=== PATIENT | female | born 1985 | race Caucasian/White ===

== ENCOUNTER 2016-10-23 02:59 | Emergency (ER) | payer BC ==
[~2016-10-23] VITALS: Ht 154.9 cm; Wt 77.1 kg
[2016-10-23 03:30] VITALS: BP 143/81
[2016-10-23] MEDS ORDERED: MORPHINE 4 MG/ML 1ML SYRINGE IV ONE ×2 (03:30→04:30)
[2016-10-23] MEDS ORDERED: NS 1,000 ML IV ONE (03:30)
[2016-10-23 03:41] LABS: BASO % 0.3 % (0.0-1.0); EOS # 0.4 K/mm3 (0.0-0.50); EOS % 3.7 % (0.0-3.0); LARGE UNSTAINED CELL # 0.1 K/mm3 (0.0-0.4); LARGE UNSTAINED CELL % 0.8 % (0.0-4.0); LYMPH # 3.3 K/mm3 (1.5-4.5); LYMPH % 29.8 % (24.0-44.0); MEAN CORPUSCULAR HEMOGLOBIN 30.9 pg (27.0-33.0); MEAN CORPUSCULAR VOLUME 93.6 fl (80.0-96.0); MONO # 0.5 K/mm3 (0.0-0.8); MONO % 4.2 % (0.0-5.0); NEUTROPHILS # 6.7 K/mm3 (1.8-7.7); NEUTROPHILS % 61.1 % (36.0-66.0); PLATELET COUNT, AUTOMATED 336 k/mm3 (150-450); RED CELL DISTRIBUTION WIDTH 12.1 % (11.5-14.5)
[2016-10-23 03:59] LABS: ALBUMIN 3.3 GM/DL (3.2-5.2); ALBUMIN/GLOBULIN RATIO 0.97 (1.00-1.93); ALKALINE PHOSPHATASE 133 U/L (45-117); ALT/SGPT 21 U/L (12-78); AMYLASE 59 U/L (25-115); ANION GAP 7 MEQ/L (8-16); AST/SGOT 8 U/L (15-37); BILIRUBIN,DIRECT < 0.1 MG/DL (0.0-0.2); BILIRUBIN,TOTAL 0.2 MG/DL (0.2-1.0); BLOOD UREA NITROGEN 13 MG/DL (7-18); CALCIUM LEVEL 8.9 MG/DL (8.5-10.1); CARBON DIOXIDE LEVEL 27 MEQ/L (21-32); CHLORIDE LEVEL 106 MEQ/L (98-107); CREATININE FOR GFR 0.68 MG/DL (0.55-1.02); GLOMERULAR FILTRATION RATE > 60.0 (>60); GLUCOSE, FASTING 100 MG/DL (70-105); POTASSIUM SERUM 3.7 MEQ/L (3.5-5.1); SODIUM LEVEL 140 MEQ/L (136-145); TOTAL PROTEIN 6.7 GM/DL (6.4-8.2)
[2016-10-23] MEDS ORDERED: ISOVUE-370 76% 100ML VIAL (Q9967) As Ordered ONE (04:10)
[2016-10-23 04:22] LABS: CONTROL LINE HCG INT CTR LINE PRESENT
--- NOTE | 2016-10-23 04:50 | REPUSA ---
CLINICAL HISTORY: Abdominal pain. TECHNIQUE: Multiple axial, sagittal and coronal CT images were obtained through the abdomen and pelvi s after administration of intravenous contrast material. COMMENTS: The liver is mildly enlarged with decreased attenuation without mass or defect. There is no intra or extrahepatic biliary ductal dilatation. The spleen is normal. The gallbladder is within normal limits . The pancreas is of normal contour and attenuation characteristics. There is no evidence of adrenal mass. Both kidneys demonstrate prompt and equal nephrograms. The kidneys are normal in size, shape and conf iguration. There is no evidence of renal or ureteral mass. No renal or ureteral calculi are identifie d. There is no hydroureter or hydronephrosis. No evidence for appendicitis. There is no bowel wall thickening. No evidence for small or large cherrie l obstruction. There is no evidence of abdominal ascites or lymphadenopathy. Moderate large bowel fecal stasis. Gastric sleeve surgery. There is no evidence of intrinsic or extrinsic bladder mass. There is no pelvic ascites or lymphadeno yue. Thickened bladder. 2.9 cm right ovarian cyst. Images of the lung bases show no evidence of pleural or parenchymal mass. There are no pleural effusi ons. The bony structures are free of lytic or blastic lesions. Multilevel degenerative changes are seen in volving the thoracolumbar spine. Scattered calcifications are seen involving the aorta and major bran ches compatible with atherosclerosis. IMPRESSION: Constipation. Gastric sleeve surgery. Mildly thickened bladder, nondistention versus mild cystitis. 2.9 cm right ovarian cyst. Thank you for your kind referral of this patient.
[2016-10-23] MEDS ORDERED: TRAM50TA2 PO (04:58)
== END 2016-10-23 06:13 | disposition home or self-care (01) ==
LOC: M ED 04:06
DX: N83.201 Unspecified ovarian cyst, right side (principal)
CPT/HCPCS: 36415; 74177; 80048; 80076; 81001; 82150; 83690; 84703; 85025; 87086; 96374; 96376; 99283; Q9967

== ENCOUNTER → 2019-08-08 20:24 | Emergency (ER) | payer OTHER, SELFPAY ==
[~2019-08-08] VITALS: Ht 154.9 cm; Wt 73.9 kg
[~2019-08-08 20:24] MED LIST: TRAM50TA2 PO; TRI-TAB16 PO
[2019-08-08 20:25] VITALS: BP 149/85
== END | disposition left against medical advice (07) ==
LOC: M ED 20:24
DX: Z53.29 Procedure and treatment not carried out because of patient's decision for other reasons (principal)

== ENCOUNTER 2019-12-02 17:13 | Emergency (ER) | payer SELFPAY ==
[~2019-12-02] VITALS: Ht 154.9 cm; Wt 79.4 kg
[2019-12-02] MEDS ORDERED: GI COCKTAIL 50ML BTL(HYOSCYAMINE/MAALOX/LIDOCAINE VISCOUS)(1:3:1) PO ONE (17:45)
[2019-12-02] MEDS ORDERED: KETOROLAC 30 MG/ML 1ML VIAL IV ONE (17:45)
[2019-12-02] MEDS ORDERED: NS 1,000 ML IV ONE (17:45)
[2019-12-02 18:05] LABS: BASO % 0.2 % (0.0-1.0); EOS # 0.3 10^3/uL (0.0-0.5); EOS % 3.4 % (0.0-3.0); HEMATOCRIT 40.8 % (36.0-47.0); HEMOGLOBIN 13.5 g/dl (12.0-15.5); LYMPH # 2.6 10^3/uL (1.5-5.0); LYMPH % 29.7 % (24.0-44.0); MEAN CORPUSCULAR HEMOGLOBIN 31.8 pg (27.0-33.0); MEAN CORPUSCULAR HGB CONC 33.1 g/dl (32.0-36.5); MONO # 0.6 10^3/uL (0.0-0.8); MONO % 6.6 % (0.0-5.0); NEUTROPHILS # 5.2 10^3/uL (1.5-8.5); NEUTROPHILS % 59.9 % (36.0-66.0); PLATELET COUNT, AUTOMATED 313 10^3/uL (150-450); RED BLOOD COUNT 4.25 10^6/uL (4.00-5.40); WHITE BLOOD COUNT 8.6 10^3/uL (4.0-10.0)
[2019-12-02 18:19] LABS: INR 0.94; PARTIAL THROMBOPLASTIN TIME 24.4 SECONDS (25.0-38.4); PROTHROMBIN TIME 12.3 SECONDS (11.8-14.0)
[2019-12-02 18:21] LABS: ALBUMIN 3.5 GM/DL (3.2-5.2); ALT/SGPT 24 U/L (12-78); BILIRUBIN,DIRECT < 0.1 MG/DL (0.0-0.2); BILIRUBIN,TOTAL 0.2 MG/DL (0.2-1.0); LIPASE 65 U/L (73-393)
--- NOTE | 2019-12-02 19:49 | REPVR ---
PROCEDURE INFORMATION: Exam: US Abdomen Limited, Right Upper Quadrant Exam date and time: 12/02/2019 7:34 PM Age: 34 years old Clinical indication: Abdominal pain; Acute; Additional info: Ruq abd pain, worse with eating TECHNIQUE: Imaging protocol: Real-time ultrasound of the abdomen with image documentation. Examination was focused on the right upper quadrant. COMPARISON: GALLBLADDER US 04/21/2013 9:43 AM FINDINGS: Liver: Normal. No masses. Gallbladder: Contracted gallbladder with a 2 cm gallstone lodged within the gallbladder neck. There is also gallbladder wall thickening. There is no pericholecystic fluid. Findings consistent with cholecystitis. Common bile duct: The common bile duct measures for mm. No mass or choledocholithiasis. Pancreas: Visualized pancreas is unremarkable. Right kidney: Right kidney measures 9.5 x 4.9 x 3.8 cm. IMPRESSION: 1. Contracted gallbladder with a 2 cm gallstone lodged within the gallbladder neck. There is also gallbladder wall thickening. There is no pericholecystic fluid. Findings consistent with cholecystitis. 2. Otherwise unremarkable. Electronically signed by: David Chauhan On 12/02/2019 19:49:03 PM
[2019-12-02 20:15] VITALS: BP 116/79
[2019-12-02] MEDS ORDERED: NORCO 5/325MG TABLET (BULK FOR ED) PO ONE (20:15)
--- NOTE | 2019-12-04 12:04 | ED PDOC ---
Post-Departure Follow-Up dr tejada faxed formal report of us for fu Margarita Pathak MD Dec 04, 2019 12:04
[2019-12-11] MEDS ORDERED: IBUP-1114 PO (10:38)
[2019-12-11] MEDS ORDERED: NAPR500T6 PO (10:38)
== END 2019-12-02 20:24 | disposition home or self-care (01) ==
LOC: M ED 17:13
DX: K80.20 Calculus of gallbladder without cholecystitis without obstruction (principal); Z79.3 Long term (current) use of hormonal contraceptives
CPT/HCPCS: 76705; 80047; 80076; 81001; 83690; 84702; 85025; 85610; 85730; 96361; 96374; 99284; J1885

== ENCOUNTER → 2019-12-08 | Outpatient (CLI) | payer BC, SELFPAY ==
[~2019-12-08] MED LIST changes: +IBUP-1114 PO; +NAPR500T6 PO; +OXYC1TAB23 PO
--- NOTE | 2019-12-08 21:32 | ECGEPIP ---
[facility] Test Date: 2019-12-08 Pat Name: EPIFANIO PORTER Department: Room: - Gender: Female Admin Asst: IRISH : 1985 Requested By: ZOYA Jo Order Number: [id number] Reading MD: Timothy Acevedo Measurements Intervals [place] Rate: 84 P: 44 UT: 148 QRS: 47 QRSD: 107 T: 42 QT: 337 QTc: 398 Interpretive Statements SINUS RHYTHM INCOMPLETE RIGHT BUNDLE BRANCH BLOCK No prior ECG available for comparison at the time of interpretation. Electronically Signed on 12-08-2019 21:32:00 EDT by Timothy Acevedo
== END ==
LOC: M EKG 16:39
PROVIDERS: ATTEND Surgery
DX: K80.80 Other cholelithiasis without obstruction (principal)

== ENCOUNTER → 2019-12-10 | Outpatient (CLI) | payer BC | LOC: M LABSMTC 09:57 | PROVIDERS: ATTEND Anesthesiology | DX: Z03.818 Encounter for observation for suspected exposure to other biological agents ruled out (principal); Z11.59 Encounter for screening for other viral diseases | CPT/HCPCS: C9803; U0003 ==

== ENCOUNTER 2019-12-13 10:41 | Day surgery (SDC) | payer BC, SELFPAY ==
[~2019-12-13] VITALS: Ht 154.9 cm; Wt 77.6 kg
[~2019-12-13 10:41] MED LIST changes: +AMPICILLIN SOD/SULBACTAM SOD 3 GM in D5W MINI-BAG PLUS 100 ML IV ONE; +KETOROLAC 60 MG/2 ML VIAL As Ordered ONE; +LIDOCAINE 2% 100MG/5ML SDV (FOR ANES.) As Ordered ONE; +LR 1,000 ML IV ONE; +MIDAZOLAM INJ 2MG/2ML VIAL (J2250 PER 1MG) As Ordered ONE; +ONDANSETRON 4MG/2ML VIAL As Ordered ONE; -OXYC1TAB23 PO; +PHENYLephrine HCL 500 MCG/5 ML (100MCG/ML) SYRINGE (J2370) As Ordered ONE; +ROCURONIUM BROMIDE 50 MG/5 ML VIAL As Ordered ONE; +SUGAMMADEX SODIUM 500 MG/5 ML VIAL (BRIDION) As Ordered ONE; +dexameTHASONE 4 MG/ML 1ML VIAL (J1100 PER 1MG) As Ordered ONE; +ePHEDrine SULFATE 25 MG/5 ML(5MG/ML) SYRINGE As Ordered ONE; +fentaNYL 250 MCG/5 ML INJECTION (J3010) As Ordered ONE; +propofoL 200 MG/20 ML VIAL As Ordered ONE
[2019-12-13 11:56] LABS: ALBUMIN 3.4 GM/DL (3.2-5.2); ALT/SGPT 16 U/L (12-78); BILIRUBIN,TOTAL 0.5 MG/DL (0.2-1.0); BLOOD UREA NITROGEN 14 MG/DL (7-18); CALCIUM LEVEL 9.2 MG/DL (8.5-10.1); CARBON DIOXIDE LEVEL 29 MEQ/L (21-32); CHLORIDE LEVEL 107 MEQ/L (98-107); CREATININE FOR GFR 0.58 MG/DL (0.55-1.30); GLOMERULAR FILTRATION RATE > 60.0 (>60); GLUCOSE, FASTING 80 MG/DL (70-100); POTASSIUM SERUM 3.8 MEQ/L (3.5-5.1); SODIUM LEVEL 138 MEQ/L (136-145)
[2019-12-13] MEDS ORDERED: BUPIVACAINE HCL 0.25% 30ML VIAL As Ordered ONE (12:58)
[2019-12-13] MEDS ORDERED: LIDOCAINE 1% SDV 30ML VIAL As Ordered ONE (12:59)
[2019-12-13] MEDS ORDERED: OXYC1TAB23 PO (13:07)
[2019-12-13] MEDS ORDERED: ACETAMINOPHEN 1000MG 100ML IV BTL (OFIRMEV) (J0131 PER 10MG) As Ordered ONE (13:36)
[2019-12-13] MEDS ORDERED: ROCURONIUM BROMIDE 50 MG/5 ML VIAL As Ordered ONE (13:57)
[2019-12-13] MEDS ORDERED: KETOROLAC 30 MG/ML 1ML VIAL IV PRN ×2 (15:00→16:00)
--- NOTE | 2019-12-13 15:39 | ROOPDOC ---
[facility] Report Of Operation Report of Operation DATE OF PROCEDURE: 12/13/19 PREPROCEDURE DIAGNOSES: Cholelithiasis, acute cholecystitis. POSTPROCEDURE DIAGNOSES: Cholelithiasis, chronic cholecystitis. PROCEDURE: Robotic assisted Laparoscopic Cholecystectomy with use of ICG for cystic duct identification. SURGEON: Zoya Rodriguez MD LINE LEAD: Pita Molina NP ANESTHESIA: General Anesthesia. ESTIMATED BLOOD LOSS: Approximately 20 mL. COMPLICATIONS: none. REMARKS: 34 F recently seen in the ED with right upper quadrant pain and cholelithiasis. When she followed up with me continued to have abdominal pain. I started her on antibiotics with only partial improvement, she is set up for cholecystectomy today. PROCEDURE NOTE: thick omental adhesions to the body of the gb, gb distended, soft thin wall despite the scarring from the adhesions, takes an elongated course. Cystic duct patent with opacification with ICG to the cbd. . DESCRIPTION OF PROCEDURE: Patient was given a dose Unasyn 3 g IV preoperatively for prophylaxis, 5 mg of ICG was given regular after intubation. She was brought to the operating room, laid supine on the table, compression boots placed for DVT prophylaxis. General endotracheal anesthesia started. His abdomen then prepped and draped in usual sterile fashion. Surgical timeout was performed prior to confirm right procedure, right patient identification and other necessary information prior to starting surgery. Entry into the abdomen done through an incision aslightly to the left of the umbilical cleft. A Veress needle was inserted with a controlled fashion. CO2 insufflation started to pressure 15 mmHg. Using the same incision an 8 mm robotic trochar was placed under direct vision laparoscope. The area underneath the insertion site was inspected and no injury found. He was then placed in steep reverse Trendelenburg. His right side was tilted up to further expose the gallbladder. Under direct vision 3 more 8 mm trochars were placed along a row at level to the camera port site at the anterior axillary line, right midclavicular line and left mid clavicular line. A transversus abdominis plane block was then performed bilaterally using the lidocaine/marcaine mixture under laparoscopic guidance. The da Carlotta robot tower was then maneuvered in place and the trochards docked to the robot. I used a prograsp, forced bipolar, and hook cautery for the procedure with a 30 robotic camera. I unscrubbed and assumed control of the camera and instruments at the surgeon's console. Operative findings: His liver is noted to be smooth in contour. The size of the liver is midly enlarged. Her gallbladder is covered with omentum adhered to the wall. The omental adhesions were lysed with cautery to expose the gallbladder. The fundus of the gallbladder was grasped and the gallbladder is elevated superiorly exposing the neck of the gallbladder. The peritoneum overlying the area is opened up and dissected free both anteriorly and posteriorly to help with retraction of the gallbladder. The hepatocystic triangle was approached and dissected using hook cautery and firely visualization of the cystic duct. There was good illumination of the course of the cystic duct. The wall of the gallbladder appears midly thickened. The cystic duct was identified coming off from the neck of the gallbladder. This was circumferentially dissected. The cystic artery was identified in its usual position medially behind a mildly enlarged lymph node of [place]. This was similarly circumferentially dissected off surrounding adipose tissue. We continued posterior dissection proximally at the neck of gallbladder to dissect the posterior wall of the gallbladder off the liver plate until a critical view of safety was achieved whereby only the previously identified duct and artery coursing through the neck the gallbladder(photodocumentation done.) At this point the the cystic artery was most accessible and this was clipped 2 times and divided in between the hemlock clips. After again checking her anatomy and verifying with firely the course of thecystic duct and common bile duct, this was also clipped and divided with 2 clips remaining at the cystic duct stump. The rest of the gallbladder was then dissected free of the gallbladder bed using Bovie cautery. The gallbladder was then placed in an Endo Catch bag and retrieved outside through the right axillary port site with partial enlargement of the port site by my assistant account manager to accomodate the gallbladder. The clips and liver bed was inspected for bleeding and bile leakage and none found. I closed the extraction site with a 2-0 vloc stitch. The abdomen was deflated, The trochars undocked, the robot removed from the field. Rest of the skin incisions closed with 4-0 Monocryl in subcuticular fashion. Dermabond placed to cover the incisions.. Patient was awakened, extubated and brought to recovery room stable. ZOYA RODRIGUEZ MD Dec 13, 2019 15:39
[2019-12-13] MEDS ORDERED: ONDANSETRON 4MG/2ML VIAL IV PRN ×2 (16:00)
[2019-12-13] MEDS ORDERED: fentaNYL 100 MCG/2 ML INJECTION (J3010) IV PRN (16:00)
[2019-12-13] MEDS ORDERED: PERCOCET 5MG/325MG TAB PO PRN ×2 (16:00)
[2019-12-13] MEDS ORDERED: METOCLOPRAMIDE INJ 10MG/2ML VIAL (J2765 PER 1) IV PRN (16:00)
[2019-12-13] MEDS ORDERED: LR 1,000 ML IV SCH (16:00)
[2019-12-13 16:45] VITALS: BP 123/72
== END 2019-12-13 16:59 | disposition home or self-care (01) ==
LOC: M SDC 10:41
PROVIDERS: ATTEND Surgery
DX: K80.10 Calculus of gallbladder with chronic cholecystitis without obstruction (principal); F41.9 Anxiety disorder, unspecified; F17.218 Nicotine dependence, cigarettes, with other nicotine-induced disorders; Z91.040 Latex allergy status; Z79.899 Other long term (current) drug therapy; Z98.84 Bariatric surgery status
CPT/HCPCS: 36415; 47563; 80053; 81025; 88304; J0131; J1100; J1885; J2250; J2370; J2405; J3010

== ENCOUNTER → 2022-05-25 | Outpatient (REF) | payer BC ==
[~2022-05-25] MED LIST changes: -AMPICILLIN SOD/SULBACTAM SOD 3 GM in D5W MINI-BAG PLUS 100 ML IV ONE; -KETOROLAC 60 MG/2 ML VIAL As Ordered ONE; -LIDOCAINE 2% 100MG/5ML SDV (FOR ANES.) As Ordered ONE; -LR 1,000 ML IV ONE; -MIDAZOLAM INJ 2MG/2ML VIAL (J2250 PER 1MG) As Ordered ONE; -ONDANSETRON 4MG/2ML VIAL As Ordered ONE; +OXYC1TAB23 PO; -PHENYLephrine HCL 500 MCG/5 ML (100MCG/ML) SYRINGE (J2370) As Ordered ONE; -ROCURONIUM BROMIDE 50 MG/5 ML VIAL As Ordered ONE; -SUGAMMADEX SODIUM 500 MG/5 ML VIAL (BRIDION) As Ordered ONE; -dexameTHASONE 4 MG/ML 1ML VIAL (J1100 PER 1MG) As Ordered ONE; -ePHEDrine SULFATE 25 MG/5 ML(5MG/ML) SYRINGE As Ordered ONE; -fentaNYL 250 MCG/5 ML INJECTION (J3010) As Ordered ONE; -propofoL 200 MG/20 ML VIAL As Ordered ONE
== END ==
LOC: M LAB REF 12:29
PROVIDERS: ATTEND Nurse Practitioner Family
DX: J02.9 Acute pharyngitis, unspecified (principal)

== ENCOUNTER → 2022-05-27 | Outpatient (CLI) | payer BC | LOC: M PLAIMG 15:16 | PROVIDERS: ATTEND Podiatrist | DX: S92.324A Nondisplaced fracture of second metatarsal bone, right foot, initial encounter for closed fracture (principal); X58.XXXA Exposure to other specified factors, initial encounter; Y92.9 Unspecified place or not applicable; M79.671 Pain in right foot; M77.41 Metatarsalgia, right foot ==

== ENCOUNTER → 2023-12-02 | Outpatient (REF) | payer BC ==
[2023-12-02 17:56] LABS: Trichomonas vaginalis (AMP) NOT DETECTED (NEGATIVE)
[2023-12-02 18:19] LABS: GC DNA AMPLIFICATION NEGATIVE (NEGATIVE)
[2023-12-02 18:34] LABS: HEMOGLOBIN A1c 5.2 % (4.0-6.0)
[2023-12-02 18:54] LABS: ALBUMIN 3.3 G/DL (3.2-5.2); ALKALINE PHOSPHATASE 123 U/L (46-116); ALT/SGPT 19 U/L (7.0-40); AST/SGOT < 8 U/L (<34); BILIRUBIN,TOTAL 0.3 MG/DL (0.3-1.2); BLOOD UREA NITROGEN 13 MG/DL (9-23); CALCIUM LEVEL 10.2 MG/DL (8.5-10.1); CARBON DIOXIDE LEVEL 28 MMOL/L (20-31); CHLORIDE LEVEL 104 MMOL/L (98-107); CHOLESTEROL LEVEL 202 MG/DL (<200); CHOLESTEROL RISK RATIO 2.58 (<5); CREATININE FOR GFR 0.63 MG/DL (0.55-1.30); GLOMERULAR FILTRATION RATE > 60.0 (>60); GLUCOSE, FASTING 93 MG/DL (60-100); HDL CHOLESTEROL 78.1 MG/DL (>40); LDL CHOLESTEROL 97.7 MG/DL (<100); NON-HDL-C 123.9 MG/DL; SODIUM LEVEL 138 MMOL/L (136-145); THYROID STIMULATING HORMONE 2.075 uIU/ML (0.55-4.78); TOTAL 25(OH) VITAMIN D 38.5 NG/ML (20.0-100.0); TOTAL PROTEIN 6.2 G/DL (5.7-8.2); TRIGLYCERIDES LEVEL 131 MG/DL (<150)
== END ==
LOC: M LAB REF 16:23
PROVIDERS: ATTEND Physician Assistant
DX: Z11.9 Encounter for screening for infectious and parasitic diseases, unspecified (principal); E66.9 Obesity, unspecified; E55.9 Vitamin D deficiency, unspecified

== ENCOUNTER → 2025-04-25 | Outpatient (REF) | payer BC ==
[~2025-04-25] MED LIST changes: +NAPR-1405 PO; -NAPR500T6 PO
[2025-04-25 17:56] LABS: APPEARANCE, URINE CLEAR (CLEAR); BACTERIA, URINE AUTO NEGATIVE (NEGATIVE); BILIRUBIN, URINE AUTO NEGATIVE (NEGATIVE); BLOOD, URINE BLOOD NEGATIVE (NEGATIVE); GLUCOSE, URINE (UA) AUTO NEGATIVE (NEGATIVE); KETONE, URINE AUTO NEGATIVE (NEGATIVE); LEUKOCYTE ESTERASE, URINE AUTO NEGATIVE (NEGATIVE); MUCUS, URINE SMALL (NEGATIVE); NITRITE, URINE AUTO NEGATIVE (NEGATIVE); PROTEIN, URINE AUTO NEGATIVE (NEGATIVE); RBC, URINE AUTO 2 /HPF (0-3); SPECIFIC GRAVITY URINE AUTO 1.018 (1.002-1.035); SQUAMOUS EPITHELIAL CELL UR AU 6 /HPF (0-6); UROBILINOGEN, URINE AUTO 0.2 mg/dL (0.0-2.0); WBC, URINE AUTO 0 /HPF (0-3)
== END ==
LOC: M LAB REF 16:57
PROVIDERS: ATTEND Physician Assistant
DX: N39.0 Urinary tract infection, site not specified (principal)

== ENCOUNTER 2025-05-12 20:24 | Emergency (ER) | payer BC ==
[~2025-05-12] VITALS: Ht 154.9 cm; Wt 98.2 kg
[2025-05-12 22:41] VITALS: BP 129/87; TEMP 96.8; O2SAT 97
== END 2025-05-12 22:57 | disposition home or self-care (01) ==
LOC: M ED 20:24
DX: S93.401A Sprain of unspecified ligament of right ankle, initial encounter (principal); Y92.410 Unspecified street and highway as the place of occurrence of the external cause; Y93.9 Activity, unspecified; Y99.9 Unspecified external cause status; W01.0XXA Fall on same level from slipping, tripping and stumbling without subsequent striking against object, initial encounter; F41.9 Anxiety disorder, unspecified; Z91.040 Latex allergy status; Z79.1 Long term (current) use of non-steroidal anti-inflammatories (NSAID); Z79.899 Other long term (current) drug therapy

== ENCOUNTER → 2025-05-18 | Outpatient (CLI) | payer BC | LOC: M EKG 08:06 | PROVIDERS: ATTEND Physician Assistant | DX: R00.2 Palpitations (principal); Z53.9 Procedure and treatment not carried out, unspecified reason ==

== ENCOUNTER → 2025-05-21 | Outpatient (CLI) | payer BC | LOC: M WHC 13:05 | PROVIDERS: ATTEND Obstetrics & Gynecology | DX: Z12.31 Encounter for screening mammogram for malignant neoplasm of breast (principal); R92.323 Mammographic fibroglandular density, bilateral breasts; R92.8 Other abnormal and inconclusive findings on diagnostic imaging of breast ==

== ENCOUNTER → 2025-06-07 | Outpatient (CLI) | payer BC | LOC: M RAD 15:43 | PROVIDERS: ATTEND Physician Assistant | DX: M79.622 Pain in left upper arm (principal) ==

== ENCOUNTER → 2025-06-18 | Outpatient (CLI) | payer BC | LOC: M WHC 12:49 | PROVIDERS: ATTEND Obstetrics & Gynecology | DX: R92.2 Inconclusive mammogram (principal); R92.321 Mammographic fibroglandular density, right breast ==